=== PATIENT | male | born 1990 | race African-American/Black ===

== ENCOUNTER 2023-04-27 21:02 | Emergency (ER) | payer SELFPAY | END 2023-04-27 21:55 | disposition home or self-care (01) | LOC: CSHERS 21:02 | DX: M79.604 Pain in right leg (principal) | CPT/HCPCS: 99283 ==

== ENCOUNTER 2024-12-11 16:03 | Emergency (ER) | payer SELFPAY ==
[2024-12-11] MEDS ORDERED: Acetaminophen 325 MG TAB ONE (17:04)
[2024-12-11] MEDS ORDERED: Ibuprofen 200 MG TAB ONE (17:04)
== END 2024-12-11 17:25 | disposition home or self-care (01) ==
LOC: CSHERS 16:03
DX: M79.604 Pain in right leg (principal)
CPT/HCPCS: 93005; 93010; 99283